=== PATIENT | male | born 1970 | race African-American/Black ===

== ENCOUNTER 2019-01-15 15:03 | Emergency (ER) | payer SELFPAY ==
--- NOTE | 2019-01-15 15:34 | ER Document Report ---
ED Medical Screen (RME) - General Chief Complaint: Back Injury Stated Complaint: BACK INJURY Time Seen by Provider: 01/15/19 15:31 Primary Care Provider: MARYLIN LAM MD [Primary Care Provider] - Follow up as needed Mode of Arrival: Ambulatory Information source: Patient Notes: Patient presents to the emergency department with complaints of low back pain after lifting weights last week. 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 Denies urinary bowel incontinence or retention. Denies numbness or tingling. Patient has placed a heating pad on the area. I have greeted and performed a rapid initial assessment of this patient. A comprehensive ED assessment and evaluation of the patient, analysis of test results and completion of the medical decision making process will be conducted by additional ED providers. Dictation of this chart was performed using voice recognition software; therefore, there may be some unintended grammatical errors. TRAVEL OUTSIDE OF THE [place] IN LAST 30 DAYS: No - Related Data Allergies/Adverse Reactions: Penicillins Allergy (Verified 01/15/19 15:28) Physical Exam - Vital signs Vitals: Temp Pulse Resp BP Pulse Ox 98.2 F 74 16 127/75 H 96 01/15/19 15:08 01/15/19 15:08 01/15/19 15:08 01/15/19 15:08 01/15/19 15:08 Course - Vital Signs Vital signs: Temp Pulse Resp BP Pulse Ox 98.2 F 74 16 127/75 H 96 01/15/19 15:08 01/15/19 15:08 01/15/19 15:08 01/15/19 15:08 01/15/19 15:08 Doctor's Discharge - Discharge Referrals: MARYLIN LAM MD [Primary Care Provider] - Follow up as needed
[2019-01-15] MEDS ORDERED: ACETAMINOPHEN 325 MG TABLET PO ONE (17:29)
[2019-01-15] MEDS ORDERED: KETOROLAC TROMETHAMINE INJ/PF 30 MG/1 ML SDV IM ONE (17:29)
[2019-01-15] MEDS ORDERED: LIDOCAINE 5% (700 MG) TRANSDERMAL ADH..PATCH TP ONE (17:30)
--- NOTE | 2019-01-15 17:31 | ER Document Report ---
HPI - HPI Patient complains to provider of: LBP Time Seen by Provider: 01/15/19 15:31 Pain Level: 5 Context: 48-year-old male with no medical problems presents to the emergency department with chief complaint of left low back pain after leg pressing 800 pounds last week. 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 Denies any urinary retention, bowel incontinence, saddle anesthesia, acute limb weakness, fevers, denies IV drug use. No other complaints Past Medical History - General Information source: Patient - Social History Smoking Status: Former Smoker Chew tobacco use (# tins/day): No Frequency of alcohol use: None Drug Abuse: None Family History: Reviewed & Not Pertinent Patient has suicidal ideation: No Patient has homicidal ideation: No Vertical Provider Document - CONSTITUTIONAL Notes: PHYSICAL EXAMINATION: Reviewed vital signs and charting by RN GENERAL: Alert, interacts well. No acute distress. HEAD: Normocephalic, atraumatic. EYES: Pupils equal and round. Extraocular movements intact. ENT: Oral mucosa moist, tongue midline. NECK: Full range of motion. Trachea midline. LUNGS: Clear to auscultation bilaterally, no wheezes, rales, or rhonchi. No respiratory distress. HEART: Regular rate and rhythm. No murmur ABDOMEN: soft, non-tender. No distention. Bowel sounds present EXTREMITIES: Moves all 4 extremities spontaneously. No edema, No cyanosis. 5 out of 5 strength both distally and proximally bilateral lower extremities. 2+ patellar reflexes bilaterally. No clonus. Sensation grossly intact in the bilateral lower extremities. Patient is able to ambulate without difficulty. PSYCH: Normal affect, normal mood. SKIN: Warm, dry, normal turgor. No rashes or lesions noted. - INFECTION CONTROL TRAVEL OUTSIDE OF THE [place] IN LAST 30 DAYS: No Course - Re-evaluation Re-evalutation: 01/15/19 17:28 Presentation of a well appearing patient complaining of acute on chronic back pain. No rapid progression of symptoms, systemic symptoms including fevers, chills, weight loss, history of recent bacterial infection, bilateral symptoms, numbness, weakness, difficulty walking, urinary retention or bowel incontinence, personal history of cancer, immunosuppression, diabetes, known AAA, or history of IV drug use. Exam is without point tenderness over vertebral bodies, pulsatile abdominal mass, and patient has symmetric and intact lower extremity strength, sensation, and reflexes without clonus. 2+ symmetric medial malleolar and dorsalis pedis pulses Based on history and physical, I have a very low suspicion of a concerning etiology of pain including epidural compression syndrome, spinal infection, transverse myelitis, malignancy, abdominal aortic aneurysm, renal colic, acute lower extremity claudication, neurogenic claudication, ankylosing spondylitis, or other intra-abdominal process. Due to absence of concerning risk factors in history and physical as well as absence of rapidly progressive, severe, or bilateral symptoms, will defer imaging at this point. - Vital Signs Vital signs: Temp Pulse Resp BP Pulse Ox 98.2 F 74 16 127/75 H 96 01/15/19 15:08 01/15/19 15:08 01/15/19 15:08 01/15/19 15:08 01/15/19 15:08 Discharge - Discharge Clinical Impression: Low back pain Qualifiers: Chronicity: acute Back pain laterality: left Sciatica presence: without sciatica Qualified Code(s): M54.5 - Low back pain Condition: Good Disposition: HOME, SELF-CARE Additional Instructions: You have been seen in the Emergency Department (ED) today for back pain. Your workup and exam have not shown any acute abnormalities and you are likely suffering from muscle strain or possible problems with your discs, but there is no treatment that will fix your symptoms at this time. Please take Motrin 600 mg every 6 hours and/or Tylenol every 6 hours for pain/inflammation. You should also purchase a local lidocaine cream such as "aspercreme with lidocaine" and use per bottle instructions to the affected area. Apply heat to the area as often as you are able. Continue to keep active and avoid prolonged periods of bed rest. Please follow up with your doctor as soon as possible regarding today's ED visit and your back pain. Return to the ED for worsening back pain, fever, weakness or numbness of either leg, or if you develop either (1) an inability to urinate or have bowel movements, or (2) loss of your ability to control your bathroom functions (if you start having "accidents"), or if you develop other new symptoms that concern you.concern you. Referrals: MARYLIN LAM MD [Primary Care Provider] - Follow up as needed
[2019-01-15 18:04] VITALS: BP 124/71
== END 2019-01-15 18:04 | disposition home or self-care (01) ==
LOC: ER 15:03
DX: M54.5 Low back pain (principal); X50.0XXA Overexertion from strenuous movement or load, initial encounter; Y93.B9 Activity, other involving muscle strengthening exercises; G89.29 Other chronic pain; Z87.891 Personal history of nicotine dependence
CPT/HCPCS: 99283; 96372; J1885

== ENCOUNTER → 2019-09-30 | Outpatient (CLI) | payer SELFPAY ==
--- NOTE | 2019-09-30 10:18 | ER RDC ASSESSMENT REPORT ---
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[facility] [employer] - Symptoms Subjective Fever([place] feverish): Yes Chills: Yes Muscule Aches: No Runny Nose: No Sore Throat: Yes --How many day(s)?: Since Monday Cough (New or worsening chronic cough): No Shortness of breath: No Nausea or Vomiting: No Headache: Yes Abdominal Pain: No Diarrhea(3 or more loose stools in last 24 hours): No - Do you have any of the following Chronic lung disease: Asthma or emphysema or COPD: No Cystic Fibrosis: No Diabetes: No High Blood Pressure: No Cardiovascular Disease: No Chronic Kidney Disease: No Chronic Liver Disease: No Chronic blood disorder like Sickle Cell Disease: No Weak immune system due to disease or medication: No Neurologic condition that limits movement: No Developmental delay - Moderate to Severe: No Recent (within past 2 weeks) or current : No Morbid Obesity (>100 pounds over ideal weight): No Obesity Comment: 5 feet 9 inches weight 190 pounds - Objective Temperature: 97.0 F Pulse Rate: 75 Respiratory Rate: 20 Blood Pressure: 154/69 O2 Sat by Pulse Oximetry: 97 Objective: Given above, testing performed: If Testing Performed: Test Specimen Type Sent to General - General Information source: Patient Notes: Here at [facility] for COVID testing. Beatriz started to feel ill with a sore throat fever 99.9 on Monday evening. Reports left ear hurts and has a headache. 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 Patient sees Dr. Clark and has not communicated with him as of yet. Will contact PCP today. - Related Data Allergies/Adverse Reactions: Penicillins Allergy (Verified 01/15/19 15:28) Past Medical History - General Information source: Patient - Social History Smoking Status: Former Smoker - Quit a year ago. Family History: Reviewed & Not Pertinent Renal/ Medical History: Denies: Hx Peritoneal Dialysis Physical Exam - General General appearance: Appears well, Alert In distress: None Notes: PHYSICAL EXAMINATION: GENERAL: Well-appearing and in no acute distress. HEAD: Atraumatic, normocephalic. EYES: sclera anicteric, conjunctiva are normal. ENT: nares patent. Moist mucous membranes. NECK: Normal range of motion, supple without lymphadenopathy LUNGS: CTAB and equal. No wheezes rales or rhonchi. Rsep even and unlabored. Lung sounds clear. HEART: Regular rate and rhythm without murmurs ABDOMEN: Soft, nontender, normal bowel sounds, no guarding. EXTREMITIES: No cyanosis. NEUROLOGICAL: Normal speech. PSYCH: Normal mood, normal affect. SKIN: Warm, Dry, normal turgor, no rashes or lesions noted Diagnostic Results Laboratory Results: Patient informed of negative rapid strep and negative rapid flu results. pending strep culture pending COVID testing results and provided instructions regarding COVID to include: As a person under investigation for Covid 19, the [place] department of Health and Human Services, division of public health advises you to adhere to the following guidance until your test results are reported to you. If your test result is positive, you will receive additional information from your provider and your local health department at that time. Remain at home until you are cleared by the health provider or public health authorities. Keep a log of visitors to your home, notify any visitors to your home of your isolation status. If you plan to move to a new address or leave the county, notify the local health department in your County. Call your doctor or seek care if you have an urgent medical need. Before seeking medical care, call ahead to get instructions from the provider before arriving at the medical office clinic or hospital. Notify them that you are being tested for the virus that causes Covid 19 so that arrangements can be made, as necessary, to prevent transmission to others in the healthcare setting. Next, notify the local health department in your county. If a medical emergency arises and you need to call 911, inform the first responders that you are being tested for the virus that causes Covid 19. Next, notify the local health department in your county. Patient Education/Counseling Counseling/Education: Patient presents with upper respiratory symptoms worrisome for possible Covid 19. Patient does not have emergency worring symptoms such as difficulty breathing, shortness of breath, chest pain, pressure, confusion or cyanosis. Patient appears suitable for discharge. Patient instructed to follow-up with Dr. Clark today, patient's PCP. Patient to go to ED for peristent or worsening symptoms. patient's vital signs are stable and patient is nontoxic in appearance. Good return precautions have been discussed with patient, patient verbalized understanding and is agreeable with discharge plan of care at this time. RDC Discharge - Discharge Clinical Impression: COVID - 19 SCREENING Upper respiratory infection Qualifiers: URI type: unspecified URI Qualified Code(s): J06.9 - Acute upper respiratory infection, unspecified Condition: Stable Disposition: Home; Selfcare
[2019-09-30 10:46] VITALS: BP 154/69
--- NOTE | 2019-09-30 10:46 | ER RDC ASSESSMENT REPORT ---
Intake - In the Last 14 days Have you traveled outside [place]?: No Have you been in close contact with someone CONFIRMED: No Worked in Healthcare?: No - Symptoms Subjective Fever([place] feverish): Yes Chills: Yes Muscule Aches: No Runny Nose: No Sore Throat: Yes Cough (New or worsening chronic cough): No Shortness of breath: No Nausea or Vomiting: No Headache: Yes Abdominal Pain: No Diarrhea(3 or more loose stools in last 24 hours): No - Do you have any of the following Chronic lung disease: Asthma or emphysema or COPD: No Cystic Fibrosis: No Diabetes: No High Blood Pressure: No Cardiovascular Disease: No Chronic Kidney Disease: No Chronic Liver Disease: No Chronic blood disorder like Sickle Cell Disease: No Weak immune system due to disease or medication: No Neurologic condition that limits movement: No Developmental delay - Moderate to Severe: No Recent (within past 2 weeks) or current : No Morbid Obesity (>100 pounds over ideal weight): No Obesity Comment: Height 5 feet 9 inches weight 190 pounds - Objective Temperature: 97.0 F Pulse Rate: 75 Respiratory Rate: 20 Blood Pressure: 154/69 O2 Sat by Pulse Oximetry: 97 Objective: Given above, testing performed: If Testing Performed: Test Specimen Type Sent to General - General - Related Data Allergies/Adverse Reactions: Penicillins Allergy (Verified 01/15/19 15:28) Past Medical History - General Information source: Patient - Social History Smoking Status: Former Smoker - Quit a year ago. Family History: Reviewed & Not Pertinent Renal/ Medical History: Denies: Hx Peritoneal Dialysis RDC Discharge - Discharge Condition: Stable
[2019-09-30 12:01] LABS: A TYPE INFLUENZA AG NEGATIVE (NEGATIVE); B INFLUENZA AG NEGATIVE (NEGATIVE)
== END ==
LOC: RDC 09:48
PROVIDERS: ATTEND Nurse Practitioner Family
DX: Z20.828 Contact with and (suspected) exposure to other viral communicable diseases (principal); J06.9 Acute upper respiratory infection, unspecified; R50.9 Fever, unspecified; J02.9 Acute pharyngitis, unspecified; R51 Headache; Z88.0 Allergy status to penicillin; Z87.891 Personal history of nicotine dependence
CPT/HCPCS: 36415; 87070; 87880; 87635; 87804; C9803

== ENCOUNTER 2019-10-01 02:52 | Emergency (ER) | payer SELFPAY | END 2019-10-01 03:47 | disposition left against medical advice (07) | LOC: ER 02:52 | DX: Z53.21 Procedure and treatment not carried out due to patient leaving prior to being seen by health care provider (principal) ==

== ENCOUNTER 2019-10-01 06:20 | Emergency (ER) | payer SELFPAY ==
--- NOTE | 2019-10-01 08:34 | RADIOLOGY REPORT (SQ) ---
EXAM DESCRIPTION: CHEST SINGLE VIEW IMAGES COMPLETED DATE/TIME: 10/01/2019 8:05 am REASON FOR STUDY: SOB COMPARISON: None. EXAM PARAMETERS: NUMBER OF VIEWS: One view. TECHNIQUE: Single frontal radiographic view of the chest acquired. RADIATION DOSE: NA LIMITATIONS: None. FINDINGS: LUNGS AND PLEURA: No opacities, masses or pneumothorax. No pleural effusion. MEDIASTINUM AND HILAR STRUCTURES: No masses. Contour normal. HEART AND VASCULAR STRUCTURES: Heart normal in size. Normal vasculature. BONES: No acute findings. HARDWARE: None in the chest. OTHER: No other significant finding. IMPRESSION: 1. NO ACUTE RADIOGRAPHIC FINDING IN THE CHEST. TECHNICAL DOCUMENTATION: JOB ID: [id number] 2010 [employer]- All Rights Reserved Reading location - IP/workstation name: [email or web address]
[2019-10-01] MEDS ORDERED: DEXAMETHASONE SOD PHOSPHATE INJ 4 MG/1 ML VIAL IV ONE (08:38)
[2019-10-01] MEDS ORDERED: CLINDAMYCIN 600 MG/D5W RTU 600 MG/50 ML RTUPB IV ONE (08:38)
[2019-10-01] MEDS ORDERED: RINGERS SOLUTION,LACTATED 1,000 ML IV ONE (08:38)
[2019-10-01 08:39] LABS: APPEARANCE,URINE SLIGHTLY-CLOUDY; BILIRUBIN,URINE NEGATIVE (NEGATIVE); COLOR,URINE YELLOW; GLUCOSE, URINE NEGATIVE (NEGATIVE); KETONES,URINE 80 mg/dL (NEGATIVE); LEUKOCYTE ESTERASE,URINE NEGATIVE (NEGATIVE); NITRITE,URINE NEGATIVE (NEGATIVE); PROTEIN,URINE 100 mg/dL (NEGATIVE); URINE SPECIFIC GRAVITY 1.035; UROBILINOGEN,URINE NEGATIVE mg/dL (<2.0)
--- NOTE | 2019-10-01 08:39 | ER Document Report ---
ED ENT - General Chief Complaint: Sore Throat Stated Complaint: SHORTNESS OF BREATH Time Seen by Provider: 10/01/19 08:20 Primary Care Provider: MARYLIN LAM MD [Primary Care Provider] - Follow up as needed LISA WARNER MD [ACTIVE STAFF] - Follow up in 3-5 days (Call for an outpatient follow-up appointment.) Mode of Arrival: Ambulatory Information source: Patient Notes: 48-year-old male no previous medical problems presents emergency room of the left side of his throat x3 days. Low-grade fevers 99.9. Has been taking Tylenol with minimal relief. Last dose at 1 AM. States is able to tolerate p.o. fluids but is painful to swallow. No ill contacts. No recent antibiotics. States he went to the [facility] yesterday had a negative strep COVID testing pending. States pain got worse during the night. He denies any shortness of breath, no difficulty breathing. Does travel to [facility] daily works in a [place]. No known COVID-19 exposure. TRAVEL OUTSIDE OF THE [place] IN LAST 30 DAYS: No - Related Data Allergies/Adverse Reactions: Penicillins Allergy (Verified 01/15/19 15:28) Past Medical History - General Information source: Patient - Social History Smoking Status: Former Smoker Frequency of alcohol use: Occasional Drug Abuse: None Family History: Reviewed & Not Pertinent Patient has homicidal ideation: No Renal/ Medical History: Denies: Hx Peritoneal Dialysis Review of Systems - Review of Systems Constitutional: Fever EENT: Throat pain, Difficulty swallowing Cardiovascular: No symptoms reported Respiratory: No symptoms reported Gastrointestinal: No symptoms reported Musculoskeletal: No symptoms reported Skin: No symptoms reported Neurological/Psychological: No symptoms reported -: Yes All other systems reviewed and negative Physical Exam - Vital signs Vitals: Temp Pulse Resp BP Pulse Ox 98.0 F 67 18 142/83 H 98 10/01/19 08:00 10/01/19 08:00 10/01/19 08:00 10/01/19 08:00 10/01/19 08:00 - General General appearance: Appears well, Alert In distress: Moderate - HEENT Head: Normocephalic, Atraumatic Eyes: Normal Pupils: PERRL Ears: Normal External canal: Normal Tympanic membrane: Normal Sinus: Normal Nasal: Normal Mucous membranes: Normal Pharynx: Erythema, Peritonsillar abscess - Left-sided, Tonsillar hypertrophy. No: Exudate Neck: Lymphadenopathy - Left anterior cervical. No: Meningismus, Subcutaneous emphysema, Thyromegally - Respiratory Respiratory status: No respiratory distress Chest status: Nontender Breath sounds: Normal Chest palpation: Normal - Cardiovascular Rhythm: Regular Heart sounds: Normal auscultation Murmur: No - Neurological Neuro grossly intact: Yes Cognition: Normal Orientation: AAOx4 Lv Coma Scale Eye Opening: Spontaneous Lv Coma Scale Verbal: Oriented Lv Coma Scale Motor: Obeys Commands [place] Coma Scale Total: 15 Speech: Normal Motor strength normal: LUE, RUE, LLE, RLE Sensory: Normal - Skin Skin Temperature: Warm Skin Moisture: Dry Skin Color: Normal Course - Re-evaluation Re-evalutation: 10/01/19 09:04 Patient with persistent sore throat worsening today. Questionable left-sided peritonsillar abscess. Labs, fluids, IV antibiotics, Decadron, reevaluate. 10/01/19 14:34 Patient currently resting comfortably seen and evaluated and abscess was drained by ENT Dr. Warner. Patient tolerated well. Patient will be discharged home on prednisone, pain medication and antibiotics as discussed. Clinical diet for the next 24 hours. Eforse was reviewed no history of chronic narcotic approved for narcotic prescription today. Outpatient follow-up with ENT as discussed. Patient was given strict return to the emergency room guidelines. Return for any new or worsening symptoms. All questions were answered. Patient verbalized understanding and agrees with plan of care. 10/01/19 15:35 Received call from pharmacy requesting clindamycin and Tylenol elixir be changed to capsules and tablets instead of liquid due to cost. New prescriptions for 300 mg of clindamycin 1 p.o. every 6 #40 and Tylenol 3 1-2 every 4-6 hours as ne eded for pain #12 were approved via telephone with Rosalva. 10/01/19 16:10 - Vital Signs Vital signs: Temp Pulse Resp BP Pulse Ox 98.6 F 78 18 138/77 H 98 10/01/19 15:11 10/01/19 15:11 10/01/19 15:11 10/01/19 15:11 10/01/19 15:11 - Laboratory Result Diagrams: 10/01/19 09:18 10/01/19 09:18 Laboratory results interpreted by me: 10/01/19 10/01/19 10/01/19 08:12 09:18 09:18 WBC 15.9 H Seg Neuts % (Manual) 90 H Lymphocytes % (Manual) 4 L Abs Neuts (Manual) 14.3 H Glucose 126 H Urine Protein 100 H Urine Ketones 80 H Urine Ascorbic Acid 40 H - Diagnostic Test Radiology reviewed: Reports reviewed - Consults Dr. Warner Time consulted: 11:00 Reason for consultation: 10/01/19 16:13 Mahogany tonsillar abscess evaluation and treatment Consulted provider: will come to ER Discharge - Discharge Clinical Impression: Peritonsillar abscess Condition: Stable Disposition: HOME, SELF-CARE Instructions: Mahogany-Tonsillar Abscess ([facility]) Additional Instructions: Clear liquid diet for the next 24 hours. Medications as prescribed. Outpatient follow-up with ENT as discussed. Return for any new or worsening symptoms. Prescriptions: Acetaminophen with Codeine [Tylenol with Codeine Elixir] 10 ml PO Q4HP PRN 3 Days #180 elixir PRN Reason: Clindamycin Palmitate HCl [Clindamycin Pediatric] 20 ml PO Q6H 10 Days #1200 soln.recon Prednisolone Sod Phosphate [Prelone Soln 15 Mg/5 Ml Oral Syring] 50 mg PO DAILY 5 Days #250 mg Forms: Return to Work Referrals: MARYLIN LAM MD [Primary Care Provider] - Follow up as needed LISA WARNER MD [ACTIVE STAFF] - Follow up in 3-5 days (Call for an outpatient follow-up appointment.)
[2019-10-01 09:47] LABS: HEMATOCRIT 43.9 % (37.9-51.0); HEMOGLOBIN 14.8 g/dL (13.5-17.0); MEAN CORPUSCULAR HEMOGLOBIN 29.5 pg (27.0-33.4); MEAN CORPUSCULAR HGB CONC 33.6 g/dL (32.0-36.0); MEAN CORPUSCULAR VOLUME 88 fl (80-97); PLATELET COUNT 208 10^3/uL (150-450); RED CELL DISTRIBUTION WIDTH 13.4 % (11.5-14.0); WHITE BLOOD COUNT 15.9 10^3/uL (4.0-10.5)
[2019-10-01 10:00] LABS: ALBUMIN 4.6 g/dL (3.5-5.0); ALKALINE PHOSPHATASE 81 U/L (38-126); ANION GAP 9 (5-19); ASPARTATE AMINO TRANSFERASE 30 U/L (17-59); BILIRUBIN,TOTAL 0.6 mg/dL (0.2-1.3); BLOOD UREA NITROGEN 15 mg/dL (7-20); CALCIUM 9.6 mg/dL (8.4-10.2); CARBON DIOXIDE 26 mmol/L (22-30); CHLORIDE 103 mmol/L (98-107); GLUCOSE 126 mg/dL (75-110); POTASSIUM 4.2 mmol/L (3.6-5.0)
[2019-10-01 10:12] LABS: ABSOLUTE LYMPHOCYTES# (MANUAL) 0.6 10^3/uL (0.5-4.7); BASOPHILS % (MANUAL) 0 % (0-2); EOSINOPHILS % (MANUAL) 0 % (0-6); LYMPHOCYTES % (MANUAL) 4 % (13-45); MONOCYTES % (MANUAL) 6 % (3-13); PLATELET COMMENT ADEQUATE; RBC MORPHOLOGY COMMENT NORMO-CYTIC/CHROMIC; SEGMENTED NEUTROPHILS % (MAN) 90 % (42-78); TOTAL CELLS COUNTED 100
--- NOTE | 2019-10-01 10:50 | RADIOLOGY REPORT (SQ) ---
EXAM DESCRIPTION: CT SOFT TISSUE NECK WITH IMAGES COMPLETED DATE/TIME: 10/01/2019 10:29 am REASON FOR STUDY: throat pain/swelling COMPARISON: None. TECHNIQUE: Post IV contrasted scanning from skull base through lung apices with review of bone, soft tissue and lung windows. Reconstructed coronal and sagittal MPR images reviewed. All images stored on PACS. All CT scanners at this facility use dose modulation, iterative reconstruction, and/or weight based d osing when appropriate to reduce radiation dose to as low as reasonably achievable (ALARA). [facility]: Dose Right [facility]: CareDose [facility]: Dose Right [facility]: Teradose 4D [facility]: [employer] RENAL FUNCTION: GFR > 60. RADIATION DOSE: CT Rad equipment meets quality standard of care and radiation dose reduction techniq ues were employed. CTDIvol: 20.5 mGy. DLP: 730 mGy-cm. . LIMITATIONS: None. FINDINGS: SKULL BASE: Intact. MAJOR SALIVARY GLANDS: No solid or cystic masses. No inflammatory changes. LYMPHADENOPATHY: No adenopathy. MUCOSAL MASSES OR ASYMMETRY: Approximately 2.7 x 2.0 cm left parapharyngeal space heterogeneous low-a ttenuation lesion resulting in mild narrowing of the inferior nasopharynx. LARYNX/CORDS: No abnormal findings. VASCULAR STRUCTURES: The major vessels are patent. LUNG APICES: Clear. BONES: Intact. THYROID: Normal size. No masses. PARANASAL SINUSES: Clear. OTHER: No other significant finding. IMPRESSION: Left peritonsillar abscess. TECHNICAL DOCUMENTATION: JOB ID: [id number] Quality ID # [id number]: Final reports with documentation of one or more dose reduction techniques (e.g., Au tomated exposure control, adjustment of the mA and/or kV according to patient size, use of iterative reconstruction technique) 2010 [employer]- All Rights Reserved Reading location - IP/workstation name: [email or web address]
[2019-10-01] MEDS ORDERED: MORPHINE SULFATE 10 MG/ML INJ IV ONE (11:13)
[2019-10-01] MEDS ORDERED: BENZOCAINE 20% AEROSOL SPRAY 60 GM TP ONE (11:14)
[2019-10-01 15:12] VITALS: BP 138/77
--- NOTE | 2019-10-02 12:05 | PDOC CONSULTATION ---
Consultation Consult Date: 10/01/19 Provider Consulted: LISA JUAREZ Consult reason:: Rule out peritonsillar abscess History of Present Illness Admission Date/PCP: MARYLIN LAM MD History of Present Illness: FRANCES DILLARD is a 48 year old male Oral oncology was consulted with regards to this 48-year-old male to rule out a peritonsillar abscess. Patient admits to sore throat that had progressively increased since Monday. Also admits to decreasing ability to open his mouth wide. Patient was not previously treated with antibiotics. He presented to the emergency department for evaluation. A CT scan was performed which identified a left peritonsillar abscess. Otolaryngology was consulted. Social History Smoking Status: Former Smoker Family History Family History: Reviewed & Not Pertinent Parental Family History Reviewed: Yes Children Family History Reviewed: Yes Sibling(s) Family History Reviewed.: Yes Medication/Allergy Home Medications: Oxycodone HCl/Acetaminophen [Percocet 5-325 mg Tablet] 1 tab PO ASDIR PRN #15 tablet 01/26/15 Cyclobenzaprine HCl [Flexeril 5 mg Tablet] 1 - 2 tab PO TID PRN #15 tablet 01/15/19 Acetaminophen with Codeine [Tylenol with Codeine Elixir] 10 ml PO Q4HP PRN 3 Days #180 elixir 10/01/19 Clindamycin Palmitate HCl [Clindamycin Pediatric] 20 ml PO Q6H 10 Days #1200 soln.recon 10/01/19 Prednisolone Sod Phosphate [Prelone Soln 15 Mg/5 Ml Oral Syring] 50 mg PO DAILY 5 Days #250 mg 10/01/19 Allergies/Adverse Reactions: Penicillins Allergy (Verified 01/15/19 15:28) Review of Systems Constitutional: ABSENT: chills, fever(s), headache(s), weight gain, weight loss Eyes: ABSENT: visual disturbances Ears: ABSENT: hearing changes Nose, Mouth, and Throat: PRESENT: mouth pain, sore throat Cardiovascular: ABSENT: chest pain, dyspnea on exertion, edema, orthropnea, palpitations Respiratory: ABSENT: cough, hemoptysis Gastrointestinal: ABSENT: abdominal pain, constipation, diarrhea, hematemesis, hematochezia, nausea, vomiting Musculoskeletal: ABSENT: joint swelling Integumentary: ABSENT: rash, wounds Neurological: ABSENT: abnormal gait, abnormal speech, confusion, dizziness, focal weakness, syncope Psychiatric: ABSENT: anxiety, depression, homidical ideation, suicidal ideation Endocrine: ABSENT: cold intolerance, heat intolerance, polydipsia, polyuria Hematologic/Lymphatic: ABSENT: easy bleeding, easy bruising Physical Exam Vital Signs: Temp Pulse Resp BP Pulse Ox 98.6 F 78 18 138/77 H 98 10/01/19 15:11 10/01/19 15:11 10/01/19 15:11 10/01/19 15:11 10/01/19 15:11 Intake & Output 10/01/19 10/02/19 10/03/19 06:59 06:59 06:59 Intake Total 1050 Balance 1050 Weight 86.183 kg General appearance: PRESENT: no acute distress Exam: Nasal cavity: Mild septal deviation. Oral cavity/oropharyngeal exam: Erythema with fullness left peritonsillar area. Left tonsil displaced medially, displacing uvula towards the right. Right side reveals flat peritonsillar area. Trismus is present with decreased incisor to incisor opening. Neck: Tender lymphadenopathy left greater than right. Procedure: After receiving informed consent from the patient a timeout was performed. Topical anesthetic was then applied to the left peritonsillar area. This was then infiltrated with 2% lidocaine 100,000 epinephrine. An 18-gauge needle was used to perform a needle aspiration of the left peritonsillar area. Approximately 5 mL of purulent material was aspirated. A second aspiration did not yield further purulence. The aspirate was sent for culture and sensitivity. Patient tolerated the procedure well without any complications. It should be noted that the trismus decreased after aspiration of the peritonsillar abscess. The patient was able to open up his mouth further. Incisor to incisor opening increased Ear exam: PRESENT: normal external ear exam Respiratory exam: PRESENT: clear to auscultation oli. ABSENT: rales, rhonchi, wheezes Cardiovascular exam: PRESENT: RRR. ABSENT: diastolic murmur, rubs, systolic murmur Pulses: PRESENT: normal dorsalis pedis pul Vascular exam: PRESENT: normal capillary refill Neurological exam: PRESENT: alert, awake, oriented to person, oriented to place, oriented to time, oriented to situation, CN II-XII grossly intact. ABSENT: motor sensory deficit Results Laboratory Results: 10/01/19 09:18 10/01/19 09:18 Impressions: Chest X-Ray 10/01/19 07:43 IMPRESSION: 1. NO ACUTE RADIOGRAPHIC FINDING IN THE CHEST. Soft Tissue Neck CT 10/01/19 08:36 IMPRESSION: Left peritonsillar abscess. Assessment & Plan - Diagnosis (1) Peritonsillar abscess Is this a current diagnosis for this admission?: Yes Plan: 1. The diagnosis and treatment plan were discussed with the patient, the nursing staff and the emergency room physician. 2. Recommend discharging the patient on a broad-spectrum antibiotic, oral ster oids and pain medicine. 3. Salt water gargles 4. Provide the patient with range of motion exercises for the temporomandibular joint. 5. Follow-up with ENT if condition worsens.
== END 2019-10-01 15:16 | disposition home or self-care (01) ==
LOC: ER 06:20
DX: J36 Peritonsillar abscess (principal); R06.02 Shortness of breath; R50.9 Fever, unspecified; Z88.0 Allergy status to penicillin
CPT/HCPCS: 99284; 96361; 96375; 96365; 36415; 87040; 87070; 87205; 83605; 85025; 87075; 87077; 80053; 81001; 71045; 70491; 42700; J3490; J1100; J2270; J7120